=== PATIENT | female | born 1945 | race Caucasian/White ===

== ENCOUNTER 2021-02-26 16:10 | Emergency (ER) | payer MEDICARE, OTHER ==
[~2021-02-26] VITALS: Ht 157.5 cm; Wt 53.6 kg
[2021-02-26 16:21] VITALS: BP 143/90
== END 2021-02-26 17:30 | disposition home or self-care (01) ==
LOC: ER 16:11
DX: M25.532 Pain in left wrist (principal); Z90.710 Acquired absence of both cervix and uterus; W01.0XXA Fall on same level from slipping, tripping and stumbling without subsequent striking against object, initial encounter; Y93.89 Activity, other specified; Y92.89 Other specified places as the place of occurrence of the external cause; Y99.8 Other external cause status
CPT/HCPCS: 73110; 99284